=== PATIENT | male | born 1975 | race Caucasian/White ===

== ENCOUNTER → 2017-01-04 | Outpatient (REF) ==
[~2017-01-04] MED LIST: CIPRO HC OTIC S10 ML OT; LEVAQUIN 750MG750 MG PO; NORCO 325 MG-51 TAB PO; PERCOCET 325 MG1 TA2 PO; VALIUM 5MG T5 MG/TAB PO
== END ==
LOC: ZLAB.WCH 15:05
DX: Z01.89 Encounter for other specified special examinations (principal)

== ENCOUNTER 2017-04-13 13:42 | Emergency (ER) | payer BC ==
[~2017-04-13] VITALS: Ht 170.2 cm; Wt 127.3 kg
[~2017-04-13 13:42] MED LIST changes: -PERCOCET 325 MG1 TA2 PO; -VALIUM 5MG T5 MG/TAB PO
[2017-04-13 13:48] VITALS: BP 141/89; PULSE 83; TEMP 97.4
[2017-04-13] MEDS ORDERED: PERCOCET 325 MG1 TA2 PO (15:16)
[2017-04-13] MEDS ORDERED: VALIUM 5MG T5 MG/TAB PO (15:16)
== END 2017-04-13 15:21 | disposition home or self-care (01) ==
LOC: COL.ER 13:42
DX: M54.5 Low back pain (principal)
CPT/HCPCS: J1100; J1170; J3360

== ENCOUNTER → 2017-04-13 | Outpatient (CLI) | payer BC | LOC: COL.RAD 14:00 | DX: M51.27 Other intervertebral disc displacement, lumbosacral region (principal); M48.07 Spinal stenosis, lumbosacral region ==

== ENCOUNTER 2017-04-14 13:37 | Emergency (ER) | payer BC ==
[~2017-04-14] VITALS: Ht 170.2 cm; Wt 127.3 kg
[~2017-04-14 13:37] MED LIST changes: +PERCOCET 325 MG1 TA2 PO; +VALIUM 5MG T5 MG/TAB PO
[2017-04-14 13:38] VITALS: TEMP 97.5
[2017-04-14 14:43] LABS: BASO % 0.2 % (0.0-2.0); GRAN # 14.3 (1.4-6.5); GRAN % 80.3 % (42.2-75.2); HEMATOCRIT 47.4 % (42.0-52.0); HEMOGLOBIN 16.5 g/dl (13.5-18.0); LYMPH # 2.2 (1.2-3.4); LYMPH % 12.4 % (20.0-51.0); MEAN CELL VOLUME 92 fl (80.0-100.0); MEAN CORPUSCULAR HEMOGLOBIN 32 pg (27.0-31.0); MEAN CORPUSCULAR HGB CONC 35 g/dl (33.0-37.0); MEAN PLATELET VOLUME 12.1 fl (7.4-10.4); MONO # 1.2 (0.1-0.6); MONO % 6.5 % (1.7-9.3); PLATELET COUNT 192 K/mm3 (130-400); RED BLOOD COUNT 5.14 M/mm3 (4.20-5.60); REDCELL DISTRIBUTION WIDTH-CV 13.2 % (11.5-14.5); WHITE BLOOD COUNT 17.8 K/mm3 (4.8-10.8)
[2017-04-14 14:56] LABS: ADJUSTED CALCIUM 9.2 mg/dL (8.4-10.2); ALANINE AMINOTRANSFERASE 27 U/L (21-72); ALBUMIN 3.9 gm/dL (3.5-5.0); ALKALINE PHOSPHATASE 62 U/L (50-136); ANION GAP 11 mmol/L (7-16); BILIRUBIN,TOTAL 0.5 mg/dL (0.0-1.0); BLOOD UREA NITROGEN 22 mg/dL (9-20); CALCIUM 9.1 mg/dL (8.4-10.2); CARBON DIOXIDE 25 mmol/L (22-30); CHLORIDE 101 mmol/L (98-107); GLUCOSE 117 mg/dL (74-106); POTASSIUM 3.4 mmol/L (3.4-5.0); SODIUM 138 mmol/L (137-145)
[2017-04-14 14:58] LABS: C-REACTIVE PROTEIN < 0.5 mg/dL (0.0-0.9)
[2017-04-14 16:35] LABS: PH 5 (5-8); SQUAMOUS EPITHELIAL 0-2 /hpf; URINE APPEARANCE Clear; URINE BACTERIA None Seen /hpf; URINE BILIRUBIN Negative (NEGATIVE); URINE BLOOD Negative (NEGATIVE); URINE COLOR Yellow; URINE GLUCOSE Negative (NEGATIVE); URINE KETONE Negative (NEGATIVE); URINE RBC 0-2 /hpf; URINE UROBILINOGEN Negative (NEGATIVE); URINE WBC 0-2 /hpf
[2017-04-14 17:04] VITALS: BP 132/95; PULSE 90
== END 2017-04-14 17:20 | disposition home or self-care (01) ==
LOC: COL.ER 13:37
PROVIDERS: Physician Assistant
DX: M25.552 Pain in left hip (principal); M54.5 Low back pain; R30.0 Dysuria; R11.0 Nausea; K59.00 Constipation, unspecified
CPT/HCPCS: J7030; Q9967

== ENCOUNTER 2017-06-19 10:59 | Outpatient (RCR) | payer OTHER | END 2017-06-22 13:57 | disposition still patient (30) | LOC: WSOH 10:59 | DX: S63.8X2A Sprain of other part of left wrist and hand, initial encounter (principal); R20.0 Anesthesia of skin; R20.2 Paresthesia of skin; X50.0XXA Overexertion from strenuous movement or load, initial encounter; Y99.0 Civilian activity done for income or pay ==

== ENCOUNTER 2017-07-19 10:54 | Outpatient (RCR) | payer OTHER | END 2017-07-25 10:33 | disposition still patient (30) | LOC: WSOH 10:54 | DX: S63.8X2D Sprain of other part of left wrist and hand, subsequent encounter (principal); W20.8XXD Other cause of strike by thrown, projected or falling object, subsequent encounter; Y99.0 Civilian activity done for income or pay ==

== ENCOUNTER 2017-08-09 11:08 | Outpatient (RCR) | payer OTHER | END 2017-08-15 09:57 | disposition still patient (30) | LOC: WSOH 11:08 | DX: S63.8X2D Sprain of other part of left wrist and hand, subsequent encounter (principal); X50.0XXD Overexertion from strenuous movement or load, subsequent encounter; Y99.0 Civilian activity done for income or pay ==

== ENCOUNTER → 2017-08-14 | Outpatient (CLI) | payer OTHER | LOC: COL.RAD 13:58 | DX: M25.832 Other specified joint disorders, left wrist (principal); S63.8X2D Sprain of other part of left wrist and hand, subsequent encounter ==

== ENCOUNTER 2017-08-21 09:04 | Outpatient (RCR) | payer OTHER | END 2017-11-19 | LOC: WSOH | DX: S63.8X2D Sprain of other part of left wrist and hand, subsequent encounter (principal); M25.832 Other specified joint disorders, left wrist; X50.0XXD Overexertion from strenuous movement or load, subsequent encounter; Y99.0 Civilian activity done for income or pay ==